=== PATIENT | female | born 1975 | race African-American/Black ===

== ENCOUNTER 2017-04-25 05:32 | Inpatient (IN) | payer OTHER ==
[2017-04-25] VITALS (31 sets, daily range): BP systolic 93–151; BP diastolic 57–92; PULSE 18–95; RESP 15–25; Ht 152.4 cm; Wt 81.7 kg
[~2017-04-25] VITALS: Ht 152.4 cm; Wt 81.7 kg
[2017-04-25] MEDS ORDERED: FER325 PO (06:59)
[2017-04-25] MEDS ORDERED: METR-111 PO (06:59)
[2017-04-25] MEDS ORDERED: LOSA1TAB19 PO (06:59)
[2017-04-25] MEDS ORDERED: LEVO250T9 PO (06:59)
[2017-04-25] MEDS ORDERED: metroNIDAZOLE 500 MG/100 ML NS IVPB ONE (07:00)
[2017-04-25] MEDS ORDERED: CEFAZOLIN 1 GM INJ ONE (07:00)
[2017-04-25] MEDS ORDERED: ACETAMINOPHEN 1000 MG/100 ML IVPB ONE (07:00)
[2017-04-25] MEDS ORDERED: THROMBIN 5000 UNIT VIAL ONE (07:04)
[2017-04-25] MEDS ORDERED: MIDAZOLAM 1 MG/ML 2 ML INJ ONE ×2 (07:26→07:46)
[2017-04-25] MEDS ORDERED: FENTAnyl 50 MCG/ML VIAL ONE ×2 (07:41→10:31)
[2017-04-25] MEDS ORDERED: PROPOFOL 20 ML ONE (07:44)
[2017-04-25] MEDS ORDERED: LIDOCAINE 2% (SDV) 5 ML INJ ONE (07:44)
[2017-04-25] MEDS ORDERED: ROCURONIUM 50 MG INJ ONE (07:44)
--- NOTE | 2017-04-25 08:01 | HPN ---
Date/Time of Note Date/Time of Note DATE: 04/25/17 TIME: 08:01 Interval H&P Admission Note Pt. seen H&P reviewed: No system changes CATIE AGARWAL MD Apr 25, 2017 08:01
[2017-04-25] MEDS ORDERED: VASOPRESSIN 20 UNITS INJ ONE (08:09)
[2017-04-25] MEDS ORDERED: METHYLENE BLUE 1% 10 ML INJ ONE (08:09)
--- NOTE | 2017-04-25 08:10 | HP ---
Date/Time of Note Date/Time of Note DATE: 04/25/17 TIME: 08:09 Assessment/Plan VTE Prophylaxis VTE Prophylaxis Intervention: SCD's HPI/ROS Admit Date/Time Admit Date/Time Apr 25, 2017 at 05:32 Hx of Present Illness Ajay Agarwal M.D. [facility] History and Physical Examination Jessy Moss Apr 01, 2017 Age: 42 : 1975 Physicians: Dermatology Specialist: Paraoptometric: Oncologist: Other: History of the Present Illness: A 42 year old with ongoing menometorrhagian and pelvic pain s/p negative EMB. Past Medical History: Sab 2 Surgical: , Myomectomy, D&C,Lysis of Adhesions Medical: Anxiety, Heart Disease, HTN, IBS Last Mammogram: 06/29/2016 wnl Last Pap Smear: 04/20/2016 - wnl Flu no, declined, Pneumococcal no, declined Colonoscopy: never Medications: 03/19/17 amlodipine 5 mg tablet 1 tablet by mouth BID 03/19/17 ferrous sulfate 325 mg (65 mg iron) tablet,delayed release 1 tablet by mouth as directed 03/19/17 hydrochlorothiazide 25 mg tablet 1 tablet by mouth DAILY Allergies: 03/19/17 Coreg 03/19/17 Iodine 03/19/17 Lisinopril 03/19/17 Vicodin Family History: Noncontributory Social History: Noncontributory Review of Systems: Negative except for above noted Physical Examination Vitals (04/01/2017): Weight 180, Height 62, BP 122/80, BMI 32.9. General: Alert. HEENT: Pupils are equal, round, reactive to light and accommodation. Neck: Supple with no masses of lymphadenopathy. Breast: Deferred due to recent examination and responsibility of primary care physician. Chest: Clear to auscultation and percussion with no rales, ronchi, or wheeze. Heart: Normal rhythm with no murmur. Abdomen: Non tender. No masses, ascites, or organomegaly. Pelvis: Uterus enlarged and globular 14-16 wk with some irregualrities Rectal: Confirmatory with pelvic exam. Neurological: Grossly intact Assessment: Probably symptomatic fibroids. Plan: TLH, possible LSH, possible USO or BSO, possible UD, possible open, possible staging. All risks and benefits of this procedure have been discussed in detail with the patient, as well as alternative treatment strategies and their implications. The patient is aware that there is some possibility of a blood transfusion and its associated risks and benefits. She wishes to proceed and gives her informed consent. Ajay Agarwal M.D. PMH/Family/Social Social History Smoking Status: Current every day smoker Exam/Review of Systems Vital Signs Vitals Vital Signs Date Time Temp Pulse Resp B/P Pulse Ox O2 Delivery O2 Flow Rate FiO2 04/25/17 06:51 98.9 18 18 119/85 100 Room Air AJAY AGARWAL MD Apr 25, 2017 08:09
[2017-04-25] MEDS ORDERED: PHENYLephrine (100 MCG/ML) 5ML SYG ONE (08:17)
[2017-04-25] MEDS: metroNIDAZOLE 500 MG/NS (PMX) 100 ML IVPB SCH ×2 (08:20→17:35)
[2017-04-25] MEDS: CEFAZOLIN 1 GM/50 ML (PMX) 50 ML IVPB SCH ×2 (08:25→16:55)
[2017-04-25] MEDS ORDERED: ONDANSETRON 4 MG INJ IV PRN ×2 (08:30→11:30)
[2017-04-25] MEDS ORDERED: CEFAZOLIN 1 GM in SOD CHLORIDE 0.9% 100 ML IVPB SCH (08:30)
[2017-04-25] MEDS ORDERED: morphine 4 MG/ML VIAL IV PRN (08:30)
[2017-04-25] MEDS ORDERED: HYDROCODONE/APAP (5/325) TAB PO PRN (08:30)
[2017-04-25] MEDS ORDERED: DEXAMETHASONE 4 MG/ML 1 ML INJ ONE (10:31)
[2017-04-25] MEDS ORDERED: ONDANSETRON 4 MG INJ ONE (10:58)
[2017-04-25] MEDS ORDERED: SUGAMMADEX SODIUM 200 MG/2 ML VIAL IV ONE (11:13)
[2017-04-25] MEDS ORDERED: DIPHENHYDRAMINE 50 MG INJ IV PRN (11:30)
[2017-04-25] MEDS ORDERED: EPHEDrine SULFATE 50 MG/5 ML SYG IV PRN (11:30)
[2017-04-25] MEDS ORDERED: hydrALAzine 20 MG INJ IV PRN (11:30)
[2017-04-25] MEDS ORDERED: OXYCODONE/ACETAMINOPHEN (5/325) TAB PO PRN ×2 (11:30)
[2017-04-25] MEDS ORDERED: FENTAnyl 50 MCG/ML VIAL IV PRN ×3 (11:30)
[2017-04-25] MEDS ORDERED: MEPERIDINE 25 MG INJ IV PRN (11:30)
[2017-04-25] MEDS ORDERED: HYDROmorphONE (0.2 MG/ML) 10ML SYG IV PRN ×3 (11:30)
[2017-04-25] MEDS ORDERED: LABETALOL HCL 20MG INJ IV PRN (11:30)
--- NOTE | 2017-04-25 11:54 | OPR ---
Date/Time of Note Date/Time of Note DATE: 04/25/17 TIME: 11:54 Operative Report Free Text/Dictation 4 OPERATIVE REPORT [facility] Name: Jessy Moss Medical Date: 04/25/17 Preoperative Diagnosis: 1- Uterine enlargement with menorrhagia 2- Pelvic pain Postoperative Diagnosis: 1- Fibroids and Adenomyosis 2- Ureteral stricture 3- Hypervascularity Procedures: 1-Laparoscopic supracervical hysterectomy and bilateral salpingectomy 2- Bilateral ureteral dissection with repositioning 3-Bilateral retroperitoneal uterine artery ligation 4- Enterolysis Surgeon: Dr. Alarcon Taker Off Hemp Fiber: Dr. Teresa Anesthesia: General Indication for Procedure: The patient is a 42 -year old female with a pelvic/abdominal mass consistent with fibroids/adenomyosis per history and examination and pelvic/abdominal pain for whom, after considering all options with risks and benefits a laparoscopy was planned with a total laparoscopic hysterectomy with possible staging or laparotomy if needed. Findings and Summary Name: Jessy Salmon The patient was laparoscoped and noted to have very extensive adhesions that required enterolysis for exposure and findings consistent of 16-18 week fibroids and additional adhesions with the right adnexia densely adherent to the sidewall and left densely adherent to the fundus and therefore requiring a ureteral dissection and repositioning bilaterally while gaining access to the uterine arteries and for ovarian preservation. While completing the ureteral dissections and gaining access to the uterine arteries anatomic issues and hypervascularity necessitated that the uterine arteries be dissected and clipped laterally, adjacent to the hypogastric arteries bilaterally. The supracervical laparoscopic hysterectomy with bilateral salpingectomy was then completed uneventfully. Procedure: After being prepped and draped in the usual manner an EEA sizer and pneumo- occluder was inserted vaginally was placed against the cervix. A 5-millimeter trocar was then placed cephlad to the umbilicus without incident. Subsequently , we insufflated to 15 mm Hg and noted extensive omental and small bowel adhesions and placed two 5-millimeter trocars laterally and enterolysis was carried out with sharp dissection although the adhesions were very dense as well as release. In the process the small bowel was mobilized and subsequently a 12-millimeter trocar suprapubically. At this time any pelvic adhesions were lysed with sharp dissection and an Omni if not nick to serosa. Subsequently we explored and noted pelvic findings consistent with a 16-18 week fibroids and an expanded lower uterine segment with the right adnexia densely adherent to the sidewall obscuring the retroperitoneal anatomy and the left densely adherent to the uterine fundus. Initially the right round ligament was cauterized and transected with the Thunderbeat and the retroperitoneal spaced opened parallel to the IP ligament and laterally with the same devise and Omni. The ureter was identified and because of pelvic scar tissue and the large fibroids and adnexia adherent to the sidewall required a specific dissection and repositioning. The ureter was bluntly dissected away from the broad ligament with an Omni and endo- dissector, and carefully repositioned [facility] lateral to the broad ligament and pathology and expanded lower uterine segment with fibroids. The process was continued distally due to some element of additional stricture. Due to vascularity and ongoing oozing as well as the large uterus the uterine artery was identified and clipped lateral to the ureter , immediately distal to the branching of the hypogastric and at the bifurcation of the hypogastric; salvaging both observed superior and inferior vesicle while controlling the entire uterine with associated collateral branches. Hence, space was developed in the broad ligament and the triple pedicle was transected with a Thunderbeat. At this time the sigmoid was dissected from the sidewall with sharp dissection and the Omni if not adjacent to serosa. The left adnexia had a plane developed from the fundus with the Thunderbeat and Omni with the ovarian adhesions released and the fallopian tube remained attached to the fundus and the left round ligament was transected with the Thunderbeat and the retroperitoneal spaced opened parallel to the IP ligament and laterally with the Gyrus bipolar cutting forceps and Omni. The ureter was identified and because of similar anatomic issues to the contralateral side required a specific dissection and repositioning. The ureter was bluntly dissected away from the broad ligament bilaterally with an Omni and endo-dissector, and carefully repositioned lateral to the broad ligament and scar tissue with inflammation and with broad ligament myoma and expanded lower uterine segment. Similarly, due to vascularity and ongoing oozing as well as the adjacent adherent adnexia and fibroid uterus the uterine artery was identified and clipped lateral to the ureter, immediately distal to the branching of the hypogastric and at the bifurcation of the hypogastric; salvaging both observed superior and inferior vesicle while controlling the entire uterine with associated collateral branches. Subsequently, space was developed in the broad ligament and the IP ligament was transected with a Thunderbeat. We then used a corkscrew was placed through the 12-mm suprapubic trocar to manipulate the uterus allowing development or the bladder flap uneventfully with the Omni and blunt dissection. The right uterine artery was transected with a Thunderbeat perpendicular to the distal lower uterine segment and the Cardinal ligament and utero-sacral ligament were both transected with an Omni and Thunderbeat Name: Jessy Moss [facility] parallel to the lower uterine segment and cervix. An identical series of steps were taken on the contralateral side. Additional efforts were required to safely develop the cul-de-sac with sharp dissection laterally and the integrity of the sigmoid was confirmed with the EEA sizer. The specimen was removed from the cervix with the Thunderbeat and additional hemostasis confirmed with the Omni and Gyrus bipolar cutting forceps. The 12-millimeter trocar site was minimally extended to 3-4 cm midline to a minilaparotomy with sharp dissection and an electrocautery and uterus was then removed by being placed in a 15- millimeter sac and morcellation and removed using Ruba clamps and a scalpel for morcellation, with all tissue accounted for. The incision was partly closed with interrupted 0- Vicryl suture, after which the 12-millimeter trocar was reinserted. After irrigating and assuring hemostasis the 12 millimeter trocar was removed and the fascia was closed with 0-vicryl using an endo-close devise. The gas was removed and the skin of all 5-mm sites then closed with 5-0 Monocryl suture and the minilaparotomy closed with subcuticular 4-0 Monocryl suture. The EBL was 100cc and the patient tolerated the procedure well and left the OR in good condition. Catie Alarcon M.D. CATIE ALARCON MD Apr 25, 2017 11:54
[2017-04-25 12:24] LABS: BASOPHILS % 0.1 % (0.0-2.0); HEMATOCRIT 26.6 % (37.0-47.0); HEMOGLOBIN 8.7 g/dl (12.0-16.0); LYMPHOCYTES # 0.8 10^3/ul (0.8-2.9); LYMPHOCYTES % 8.2 % (15.0-51.0); MEAN CORPUSCULAR HEMOGLOBIN 26.9 pg (29.0-33.0); MEAN CORPUSCULAR HGB CONC 32.7 g/dl (32.0-37.0); MEAN CORPUSCULAR VOLUME 82.1 fl (82.0-101.0); MEAN PLATELET VOLUME 11.6 fl (7.4-10.4); MONOCYTE # 0.2 10^3/ul (0.3-0.9); NEUTROPHIL # 9.1 10^3/ul (1.6-7.5); NEUTROPHILS % 89.3 % (39.0-77.0); PLATELET COUNT 164 10^3/UL (140-415); RED BLOOD COUNT 3.24 10^6/ul (4.20-5.40); RED CELL DISTRIBUTION WIDTH 16.1 % (11.5-14.5); WHITE BLOOD COUNT 10.2 10^3/ul (4.8-10.8)
[2017-04-25] MEDS: POTASSIUM CHLORIDE 20 MEQ in LACTATED RINGER'S 1,000 ML IV SCH ×3 (13:47→23:35)
[2017-04-25] MEDS: FAMOTIDINE 20 MG INJ IV SCH ×2 (13:47→20:17)
[2017-04-25 15:05] LABS: CALCIUM 7.8 mg/dl (8.4-10.2); CREATININE 0.72 mg/dl (0.44-1.00); POTASSIUM 3.5 mmol/L (3.5-5.1)
[2017-04-26] VITALS (9 sets, daily range): BP systolic 136–156; BP diastolic 63–96; PULSE 85–90; RESP 18–20
[2017-04-26] MEDS: metroNIDAZOLE 500 MG/NS (PMX) 100 ML IVPB SCH (00:23)
[2017-04-26] MEDS: CEFAZOLIN 1 GM/50 ML (PMX) 50 ML IVPB SCH (01:01)
[2017-04-26 05:11] LABS: BASOPHILS % 0.2 % (0.0-2.0); HEMATOCRIT 22.8 % (37.0-47.0); HEMOGLOBIN 7.4 g/dl (12.0-16.0); LYMPHOCYTES # 1.2 10^3/ul (0.8-2.9); LYMPHOCYTES % 12.1 % (15.0-51.0); MEAN CORPUSCULAR HEMOGLOBIN 26.4 pg (29.0-33.0); MEAN CORPUSCULAR HGB CONC 32.5 g/dl (32.0-37.0); MEAN CORPUSCULAR VOLUME 81.4 fl (82.0-101.0); MEAN PLATELET VOLUME 12.3 fl (7.4-10.4); MONOCYTE # 0.9 10^3/ul (0.3-0.9); MONOCYTES % 8.9 % (0.0-11.0); NEUTROPHIL # 7.5 10^3/ul (1.6-7.5); NEUTROPHILS % 78.6 % (39.0-77.0); PLATELET COUNT 161 10^3/UL (140-415); RED CELL DISTRIBUTION WIDTH 16.2 % (11.5-14.5); WHITE BLOOD COUNT 9.5 10^3/ul (4.8-10.8)
[2017-04-26 05:18] LABS: ALBUMIN 2.8 g/dl (3.3-4.9); CALCIUM 8.3 mg/dl (8.4-10.2); CREATININE 0.61 mg/dl (0.44-1.00); POTASSIUM 5.2 mmol/L (3.5-5.1); TOTAL PROTEIN 4.9 g/dl (6.1-8.1)
[2017-04-26 05:19] LABS: ALBUMIN/GLOBULIN RATIO 1.33
[2017-04-26 05:21] LABS: INR 1.12; PROTIME 14.4 Sec (12.2-14.2); PT RATIO 1.1
[2017-04-26] MEDS: FAMOTIDINE 20 MG INJ IV SCH ×2 (09:45→20:15)
[2017-04-26] MEDS: LOSARTAN HCTZ PO SCH (09:45)
[2017-04-26] MEDS ORDERED: DIPHENHYDRAMINE 25 MG CAP PO ONE (13:00)
[2017-04-26] MEDS ORDERED: ACETAMINOPHEN 325 MG TAB PO ONE (13:00)
--- NOTE | 2017-04-26 14:08 | HP ---
Date/Time of Note Date/Time of Note DATE: 04/26/17 TIME: 14:07 Assessment/Plan VTE Prophylaxis VTE Prophylaxis Intervention: other Lines/Catheters IV Catheter Type (from Nrs): Saline Lock Urinary Cath still in place: Yes Reason Cath still needed: skin wounds contaminated by urine Assessment/Plan Chief Complaint/Hosp Course 1) metorrahagia - s/p hysterectomy 2) anemia - transfuse - monitor H/H Problems: HPI/ROS Admit Date/Time Admit Date/Time Apr 25, 2017 at 05:32 Hx of Present Illness Patient with metomenorrhagia comes in for hysterectomy. Patient tolerated the procedure and is here for postoperative care. PMH/Family/Social Social History Smoking Status: Current every day smoker Exam/Review of Systems Vital Signs Vitals Vital Signs Date Time Temp Pulse Resp B/P Pulse Ox O2 Delivery O2 Flow Rate FiO2 04/26/17 07:58 98.5 73 19 156/91 99 04/25/17 17:00 Nasal Cannula Intake and Output 04/25/17 04/25/17 04/26/17 15:00 23:00 07:00 Intake Total 2100 ml 1405 ml 1950 ml Output Total 500 ml 1650 ml 2800 ml Balance 1600 ml -245 ml -850 ml Exam Constitutional: well developed Head: atraumatic, normocephalic Neck: supple Respiratory: diminished breath sounds Cardiovascular: regular rate and rhythm Gastrointestinal: non-tender, soft Extremities: normal pulses Labs Result Diagram: 04/26/17 0434 04/26/17 0434 Medications Medications Current Medications Morphine Sulfate (morphine) 2 mg Q2H PRN IV PAIN LEVEL 6-10 Last administered on 04/25/17 14:01; Admin Dose 2 MG; Start 04/25/17 at 08:30 Acetaminophen/ Hydrocodone Bitart ([place] (5/325)) 1 tab Q6H PRN PO PAIN LEVEL 6 -10; Start 04/25/17 at 08:30 Ondansetron HCl (Zofran Inj) 4 mg Q6H PRN IV NAUSEA AND/OR VOMITING; Start 04/25 at 08:30 Famotidine (Pepcid Iv) 20 mg Q12 IV Last administered on 04/26/17 09:45; Admin Dose 20 MG; Start 04/25/17 at 09:00 Patient Own Medication 1 ea DAILY PO Last administered on 04/26/17 09:45; Admin Dose 1 EA; Start 04/26/17 at 09:00 Acetaminophen (Tylenol Tab) 650 mg Q6H PRN PO PAIN AND OR ELEVATED TEMP; Start 04/26/17 at 13:00 EDGARDO LOPEZ Apr 26, 2017 14:08
--- NOTE | 2017-04-26 18:42 | PN ---
Date/Time of Note Date/Time of Note DATE: 04/26/17 TIME: 18:38 Assessment/Plan VTE Prophylaxis VTE Prophylaxis Intervention: SCD's Lines/Catheters [facility] Saline Lock Urinary Cath still in place: Yes Reason Cath still needed: urinary retention Assessment/Plan Chief Complaint/Hosp Course 18 week symptomatic fibroids Problems: Assessment/Plan A- clinically improving with transfusion P- anticipate d/c tomorrow; see orders Subjective 24 Hr Interval Summary Free Text/Dictation + flatus and machelle diet. Feels better with ongoing transfusion: note patient dehydrated AND anemic preop. Post op well hydrated and mild/mod blood loss but significant anemia and symptomatic. Exam/Review of Systems Vital Signs Vitals Vital Signs Date Time Temp Pulse Resp B/P Pulse Ox O2 Delivery O2 Flow Rate FiO2 04/26/17 14:00 99.2 94 19 145/89 98 04/25/17 17:00 Nasal Cannula Intake and Output 04/25/17 04/25/17 04/26/17 15:00 23:00 07:00 Intake Total 2100 ml 1405 ml 1950 ml Output Total 500 ml 1650 ml 2800 ml Balance 1600 ml -245 ml -850 ml Exam Resp- clear CVS- NSR Abd- soft and not clean incisions Ext - NT no edema Results Result Diagram: 04/26/17 0434 04/26/17 0434 Results 24 hrs Laboratory Tests Test 04/26/17 04:34 White Blood Count 9.5 Red Blood Count 2.80 L Hemoglobin 7.4 L Hematocrit 22.8 L Mean Corpuscular Volume 81.4 L Mean Corpuscular Hemoglobin 26.4 L Mean Corpuscular Hemoglobin Concent 32.5 Red Cell Distribution Width 16.2 H Platelet Count 161 Mean Platelet Volume 12.3 H Neutrophils % 78.6 H Lymphocytes % 12.1 L Monocytes % 8.9 Eosinophils % 0.0 Basophils % 0.2 Nucleated Red Blood Cells % 0.0 Neutrophils # 7.5 Lymphocytes # 1.2 Monocytes # 0.9 Eosinophils # 0.0 Basophils # 0.0 Nucleated Red Blood Cells # 0.0 Prothrombin Time 14.4 H Prothrombin Time Ratio 1.1 INR International Normalized Ratio 1.12 Sodium Level 141 Potassium Level 5.2 H Chloride Level 108 Carbon Dioxide Level 24 Anion Gap 14 Blood Urea Nitrogen 2 L Creatinine 0.61 Glucose Level 96 Calcium Level 8.3 L Total Bilirubin 0.0 L Direct Bilirubin 0.00 Indirect Bilirubin 0.0 Aspartate Amino Transf (AST/SGOT) 20 Alanine Aminotransferase (ALT/SGPT) 28 Alkaline Phosphatase 37 L Total Protein 4.9 L Albumin 2.8 L Globulin 2.10 Albumin/Globulin Ratio 1.33 Medications Medications Current Medications Morphine Sulfate (morphine) 2 mg Q2H PRN IV PAIN LEVEL 6-10 Last administered on 04/25/17 14:01; Admin Dose 2 MG; Start 04/25/17 at 08:30 Acetaminophen/ Hydrocodone Bitart ([place] (5/325)) 1 tab Q6H PRN PO PAIN LEVEL 6 -10; Start 04/25/17 at 08:30 Ondansetron HCl (Zofran Inj) 4 mg Q6H PRN IV NAUSEA AND/OR VOMITING; Start 04/25 at 08:30 Famotidine (Pepcid Iv) 20 mg Q12 IV Last administered on 04/26/17 09:45; Admin Dose 20 MG; Start 04/25/17 at 09:00 Patient Own Medication 1 ea DAILY PO Last administered on 04/26/17 09:45; Admin Dose 1 EA; Start 04/26/17 at 09:00 Acetaminophen (Tylenol Tab) 650 mg Q6H PRN PO PAIN AND OR ELEVATED TEMP; Start 04/26/17 at 13:00 CATIE AGARWAL MD Apr 26, 2017 18:42
[2017-04-26] MEDS: ACETAMINOPHEN 325 MG TAB PO PRN (20:15)
[2017-04-27 00:01] VITALS: BP 141/66; PULSE 83; RESP 17
[2017-04-27 00:40] VITALS: BP 142/60; PULSE 82; RESP 17
[2017-04-27 01:56] VITALS: BP 138/59; PULSE 80; RESP 18
[2017-04-27 05:43] LABS: BASOPHILS % 0.4 % (0.0-2.0); EOSINOPHILS # 0.1 10^3/ul (0.0-0.5); EOSINOPHILS % 1.3 % (0.0-7.0); HEMATOCRIT 31.1 % (37.0-47.0); HEMOGLOBIN 10.1 g/dl (12.0-16.0); LYMPHOCYTES # 1.4 10^3/ul (0.8-2.9); LYMPHOCYTES % 16.7 % (15.0-51.0); MEAN CORPUSCULAR HEMOGLOBIN 26.5 pg (29.0-33.0); MEAN CORPUSCULAR HGB CONC 32.5 g/dl (32.0-37.0); MEAN CORPUSCULAR VOLUME 81.6 fl (82.0-101.0); MEAN PLATELET VOLUME 12.1 fl (7.4-10.4); MONOCYTE # 0.6 10^3/ul (0.3-0.9); MONOCYTES % 7.5 % (0.0-11.0); NEUTROPHIL # 6.1 10^3/ul (1.6-7.5); NEUTROPHILS % 73.7 % (39.0-77.0); PLATELET COUNT 166 10^3/UL (140-415); RED BLOOD COUNT 3.81 10^6/ul (4.20-5.40); RED CELL DISTRIBUTION WIDTH 15.6 % (11.5-14.5); WHITE BLOOD COUNT 8.2 10^3/ul (4.8-10.8)
[2017-04-27 05:55] LABS: CALCIUM 8.4 mg/dl (8.4-10.2); CREATININE 0.82 mg/dl (0.44-1.00); POTASSIUM 3.2 mmol/L (3.5-5.1)
[2017-04-27] MEDS: LOSARTAN HCTZ PO SCH (08:07)
[2017-04-27] MEDS: FAMOTIDINE 20 MG INJ IV SCH (08:07)
[2017-04-27 08:30] VITALS: BP 158/95; RESP 18
[2017-04-27] MEDS ORDERED: POTASSIUM CHLORIDE (SR) 20 MEQ TAB PO STA (09:27)
--- NOTE | 2017-04-27 12:03 | DS ---
Date/Time of Note Date/Time of Note DATE: 04/27/17 TIME: 12:01 Discharge Summary Admission/Discharge Info Admit Date/Time Apr 25, 2017 at 11:05 Discharge Date/Time 04/27/17 Discharge Diagnosis metomenorrhagia Patient Condition: Fair Consults surgery Procedures hysterectomy Hx of Present Illness Patient with metomenorrhagia comes in for hysterectomy. Patient tolerated the procedure and is here for postoperative care. Hospital Course Patient admitted with fibroids. She underwent hysterectomy. She tolerated the procedure except for anemia which was treated with blood transfusion. Patient was then felt to be stable and was sent home. 18 week symptomatic fibroids Home Meds Reported Medications Levofloxacin* (Levofloxacin*) 250 Mg Tablet, 1 TAB PO DAILY, #2 04/25/17 Ferrous Sulfate* (Ferrous Sulfate*) 325 Mg Tabec, 1 TAB PO TID, #90 04/25/17 Metronidazole (Flagyl) 250 Mg Tab, 250 MG PO DAILY, #2 04/25/17 Losartan-Hydrochlorothiazide (Losartan-HCTZ) 50-12.5 Mg Tab, 1 TAB PO DAILY, #30 04/25/17 Primary Care Provider Not On Staff Doctor Pending Labs Laboratory Tests Test 04/27/17 04:59 04/27/17 07:46 White Blood Count 8.210^3/ul (4.8-10.8) Red Blood Count 3.8110^6/ul (4.20-5.40) Hemoglobin 10.1g/dl (12.0-16.0) Hematocrit 31.1% (37.0-47.0) Mean Corpuscular Volume 81.6fl (82.0-101.0) Mean Corpuscular Hemoglobin 26.5pg (29.0-33.0) Mean Corpuscular Hemoglobin Concent 32.5g/dl (32.0-37.0) Red Cell Distribution Width 15.6% (11.5-14.5) Platelet Count 44693^3/UL (140-415) Mean Platelet Volume 12.1fl (7.4-10.4) Neutrophils % 73.7% (39.0-77.0) Lymphocytes % 16.7% (15.0-51.0) Monocytes % 7.5% (0.0-11.0) Eosinophils % 1.3% (0.0-7.0) Basophils % 0.4% (0.0-2.0) Nucleated Red Blood Cells % 0.0/100WBC (0.0-0.0) Neutrophils # 6.110^3/ul (1.6-7.5) Lymphocytes # 1.410^3/ul (0.8-2.9) Monocytes # 0.610^3/ul (0.3-0.9) Eosinophils # 0.110^3/ul (0.0-0.5) Basophils # 0.010^3/ul (0.0-0.1) Nucleated Red Blood Cells # 0.010^3/ul (0.0-0.0) Sodium Level 144mmol/L (135-144) Potassium Level 3.2mmol/L (3.5-5.1) Chloride Level 105mmol/L (97-110) Carbon Dioxide Level 28mmol/L (21-31) Anion Gap 14 (8-16) Blood Urea Nitrogen 7mg/dl (7-20) Creatinine 0.82mg/dl (0.44-1.00) Glucose Level 99mg/dl (70-220) Calcium Level 8.4mg/dl (8.4-10.2) Lab Scanned Report BLOOD [id number] EDGARDO LOPEZ Apr 27, 2017 12:03
[2017-04-27] MEDS: ACETAMINOPHEN 325 MG TAB PO PRN (14:02)
== END 2017-04-27 14:17 | disposition home or self-care (01) | DRG 743 ==
LOC: REC 05:32 → INTOOBSV 05:32 → OBSVTOIN 11:05 → MS1 12:37
PROC: 0UT7FZZ Resection of Bilateral Fallopian Tubes, Via Natural or Artificial Opening With Percutaneous Endoscopic Assistance (ICD-10-PCS; 2017-04-25)
PROC: 0UT77ZZ Resection of Bilateral Fallopian Tubes, Via Natural or Artificial Opening (ICD-10-PCS; 2017-04-25)
PROC: 0DN84ZZ Release Small Intestine, Percutaneous Endoscopic Approach (ICD-10-PCS; 2017-04-25)
PROC: 0DNS4ZZ (ICD-10-PCS; 2017-04-25)
PROC: 0DNW4ZZ Release Peritoneum, Percutaneous Endoscopic Approach (ICD-10-PCS; 2017-04-25)
PROC: 0UN14ZZ Release Left Ovary, Percutaneous Endoscopic Approach (ICD-10-PCS; 2017-04-25)
PROC: 0UT9FZZ Resection of Uterus, Via Natural or Artificial Opening With Percutaneous Endoscopic Assistance (ICD-10-PCS; principal; 2017-04-25 07:30)
DX: D25.9 Leiomyoma of uterus, unspecified (principal); I10 Essential (primary) hypertension; N35.9 Urethral stricture, unspecified; N92.1 Excessive and frequent menstruation with irregular cycle; R33.9 Retention of urine, unspecified; E04.1 Nontoxic single thyroid nodule; D64.9 Anemia, unspecified; Z88.6 Allergy status to analgesic agent; Z88.8 Allergy status to other drugs, medicaments and biological substances
CPT/HCPCS: 36430; 80048; 80053; 85025; 85610; 86850; 86900; 86901; 86920; 88305; G0378; J0131; J0690; J1100; J2250; J2270; J2370; J2405; J3010; J3480; J7120; P9016